=== PATIENT | female | born 1940 | race Caucasian/White ===

== ENCOUNTER 2020-12-08 19:09 | Outpatient (CLI) | payer MEDICARE, OTHER, SELFPAY ==
--- NOTE | 2020-12-08 19:45 | DI.RAD_ITS ---
Exam(s) XR HAND LT COMPLETE EXAM: XR HAND LT COMPLETE CLINICAL HISTORY: left hand pain s/p dog bite r/o fracture. TECHNIQUE: 2D digital imaging was performed. COMPARISON: No exams were available for comparison FINDINGS: There is no evidence of acute fracture nor subluxation. No osseous lesions. No radiopaque foreign b mainor. Degenerative changes are noted at the 1st carpometacarpal joint. IMPRESSION: DATA REPOSITORY: RADIATION DOSE DELIVERED:
--- NOTE | 2020-12-08 19:45 | DI.RAD_ITS ---
Exam(s) XR WRIST LT COMPLETE EXAM: XR WRIST LT COMPLETE CLINICAL HISTORY: pain left wrist, injury s/p dog bite. TECHNIQUE: 2D digital imaging was performed. COMPARISON: No exams were available for comparison FINDINGS: There is no evidence of acute fracture or dislocation nor significant ulnar variance. Degenerative c hanges noted at the articulation between the thumb metacarpal and trapezium as well as the articulati on between the trapezium and the distal scaphoid. No radiopaque foreign body. No osseous lesions. IMPRESSION: DATA REPOSITORY: RADIATION DOSE DELIVERED:
--- NOTE | 2020-12-08 20:42 | DI.VRAD_ITS ---
PROCEDURE INFORMATION: Exam: XR Left Wrist Exam date and time: 12/08/2020 7:48 PM Age: 80 years old Clinical indication: Injury or trauma; Wrist; Left; Injury date: 12/07/20; Injury details: Pain, redness, and swelling S/P dog bite, R/O FX TECHNIQUE: Imaging protocol: XR Left wrist. Views: 3 or more views. COMPARISON: No relevant prior studies available. FINDINGS: Bones/joints: Degenerative changes in the thumb carpometacarpal joint and radiocarpal joint. There is no evidence of acute fracture.There is no evidence of malalignment or dislocation. Soft tissues: Normal. IMPRESSION: 1. 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 2. There is no evidence of acute fracture.There is no evidence of malalignment or dislocation. Dictated and Authenticated by: Elmer Buitrago MD. Ordering:[id number] Christianson MD
--- NOTE | 2020-12-08 20:43 | DI.VRAD_ITS ---
PROCEDURE INFORMATION: Exam: XR Left Hand Exam date and time: 12/08/2020 7:48 PM Age: 80 years old Clinical indication: Injury or trauma; Hand; Left; Injury date: 12/07/20; Injury details: Pain, redness, swelling S/P dog bite, R/O FX TECHNIQUE: Imaging protocol: XR Left hand. Views: 3 or more views. COMPARISON: No relevant prior studies available. FINDINGS: Bones/joints: Degenerative changes in the thumb carpometacarpal joint Joint space narrowing in the DIP joints of the fingers consistent with degenerative changes There is no evidence of acute fracture.There is no evidence of malalignment or dislocation. Soft tissues: Normal. IMPRESSION: There is no evidence of acute fracture.There is no evidence of malalignment or dislocation. Dictated and Authenticated by: Elmer Buitrago MD. Ordering:[email or web address] Christianson MD
== END 2020-12-08 19:29 ==
PROVIDERS: Visit Provider Physician Assistant
DX: M79.642 Pain in left hand (principal); M18.12 Unilateral primary osteoarthritis of first carpometacarpal joint, left hand; M25.532 Pain in left wrist; W54.0XXD Bitten by dog, subsequent encounter
CPT/HCPCS: 73110; 73130